=== PATIENT | female | born 1965 | race Caucasian/White ===

== ENCOUNTER → 2017-08-20 | Outpatient (CLI) | payer BC, MEDICARE ==
[~2017-08-20] MED LIST: AMITRIPTYLINE H10 M1 PO; ATIVAN 1MG T1 MG/TAB PO; B-12 250 MCG PO; B-121000 MCG PO; BACTROBAN 22GM22 GM NAS; BUTTERBUR PO; CALCIUM 600 PLU1 TAB PO; CAMBIA50 MG PO; CHELATED MAGNESIUM PO; COMPAZINE 110 MG/TAB PO; CORGARD20 MG PO; COUMADIN 2MG2 MG/TAB PO; COUMADIN4 MG PO; EYE SUPPORT PO; FIBERMUCIL PO; FLEXERIL 1010 MG/TAB PO; FOLIC ACID 11 MG/TA1 PO; HAIR,SKIN AND NAILS PO; IMODIUM 2MG CAPS2 MG PO; KLOR-CON 1010 MEQ PO; LASIX 40MG TABL40 MG PO; LEVAQUIN 5500 MG/TA1 PO; LEVOXYL0.125 MG PO; LIDODERM 5% PATC1 EA TP; LOMOTIL 0.025 M1 TAB PO; LOVENOX 8080 MG/0.8 SQ; METHOTREX SQ; MIRALAX PA17 GM/Dose PO; MULTIVITAMIN1 CTB PO; NEXIUM24HROTC PO; NUBAIN IJ; OMEGA-3 FISH1000 MG PO; OTREXUP10 MG/0.4 SQ; PERCOCET 325 MG1 TAB PO; PLAQUENIL 200M200 MG PO; PREDNISONE1 MG PO; PROMETHAZINE50 MG/ML IJ; SONATA 10MG10 MG PO; VOLTAREN GEL 1%1 TU TP; [UNRECOGNIZED DRUG - OTHER]
== END ==
LOC: ZCOL.LAB 14:55
DX: T81.31XA Disruption of external operation (surgical) wound, not elsewhere classified, initial encounter (principal)